=== PATIENT | female | born 1955 | race Caucasian/White ===

== ENCOUNTER 2020-03-02 10:26 | Outpatient (REF) | payer OTHER, SELFPAY ==
--- NOTE | 2020-03-02 10:30 | MM_ITS ---
EXAMINATION: MM SCREENING DIGITAL BREAST TOMOSYNTHESIS, BILATERAL CLINICAL INFORMATION: Screening. Asymptomatic. The lifetime risk of breast cancer based on the Tyrer-Cuzick Model is 9%. COMPARISON: Mammography: 02/25/2019, 01/31/2018, 11/14/2016 TECHNIQUE: Digital breast tomosynthesis is performed in both the craniocaudal and mediolateral oblique views along with computer-aided detection (CAD). Synthesized 2D images are generated from the tomosynthesis. Additional left MLO view is provided. FINDINGS: There are scattered areas of fibroglandular density (ACR BI-RADS breast composition Category b). There are no significant masses, abnormal calcifications, or other abnormalities. Parenchymal pattern is similar to prior exams. No significant changes. MM/MM tomosynthesis screening BI IMPRESSION: No mammographic evidence of malignancy. ASSESSMENT: BI-RADS 1: Negative RECOMMENDATION: Routine annual mammography screening. This patient's information was entered into a reminder system with a target due date for their next mammogram.
== END 2020-03-02 10:27 | disposition home or self-care (01) ==
LOC: HO.MAMMO 10:26
PROVIDERS: PCP Internal Medicine; Visit Provider Internal Medicine
DX: Z12.31 Encounter for screening mammogram for malignant neoplasm of breast (principal)
CPT/HCPCS: 77063; 77067

== ENCOUNTER 2021-12-05 07:21 | Outpatient (REF) | payer OTHER, SELFPAY ==
--- NOTE | ~2021-12-05 | MM_ITS ---
EXAMINATION: MM SCREENING DIGITAL BREAST TOMOSYNTHESIS, BILATERAL CLINICAL INFORMATION: Screening. Asymptomatic. The lifetime risk of breast cancer based on the Tyrer-Cuzick Model is 7.8%. COMPARISON: Mammography: March 02, 2020 and studies dating back to August 22, 2015 TECHNIQUE: Digital breast tomosynthesis is performed in both the craniocaudal and mediolateral oblique views along with computer-aided detection (CAD). Synthesized 2D images are generated from the tomosynthesis. FINDINGS: There are scattered areas of fibroglandular density (ACR BI-RADS breast composition Category b). There are no significant masses, abnormal calcifications, or other abnormalities. MM/MM tomosynthesis screening BI IMPRESSION: No significant changes ASSESSMENT: BI-RADS 1: Negative RECOMMENDATION: Routine annual mammography screening. This patient's information was entered into a reminder system with a target due date for their next mammogram.
== END 2021-12-05 07:22 | disposition home or self-care (01) ==
LOC: HO.MAMMO 07:21
PROVIDERS: Visit Provider Internal Medicine
DX: Z12.31 Encounter for screening mammogram for malignant neoplasm of breast (principal)
CPT/HCPCS: 77063; 77067

== ENCOUNTER → 2022-12-12 08:30 | Outpatient (BNV) | payer OTHER, SELFPAY | PROVIDERS: Visit Provider Radiology Diagnostic Radiology | DX: Z12.31 Encounter for screening mammogram for malignant neoplasm of breast (principal) | CPT/HCPCS: 77063; 77067 ==

== ENCOUNTER 2022-12-12 08:31 | Outpatient (REF) | payer OTHER, SELFPAY ==
--- NOTE | ~2022-12-12 | MM_ITS ---
EXAMINATION: MM SCREENING DIGITAL BREAST TOMOSYNTHESIS, BILATERAL CLINICAL INFORMATION: Screening. Asymptomatic. COMPARISON: Mammography: This study is compared with prior exams dating back to 2018. TECHNIQUE: Digital breast tomosynthesis is performed in both the craniocaudal and mediolateral oblique views along with computer-aided detection (CAD). Synthesized 2D images are generated from the tomosynthesis. FINDINGS: There are scattered areas of fibroglandular density (ACR BI-RADS breast composition Category b). There are no significant masses, abnormal calcifications, or other abnormalities. Few, unchanged, benign calcifications are present in each breast. MM/MM tomosynthesis screening BI IMPRESSION: No mammographic evidence of malignancy. ASSESSMENT: BI-RADS BI-RADS 2 - Benign Findings RECOMMENDATION: Routine annual mammography screening. 1 year F/U This examination should not preclude the clinical evaluation of a suspicious palpable abnormality. This patient's information was entered into a reminder system with a target due date for their next mammogram.
== END 2022-12-12 08:32 | disposition home or self-care (01) ==
LOC: HO.MAMMO 08:31
PROVIDERS: Visit Provider Internal Medicine
DX: Z12.31 Encounter for screening mammogram for malignant neoplasm of breast (principal)
CPT/HCPCS: 77063; 77067

== ENCOUNTER 2023-12-18 08:42 | Outpatient (REF) | payer OTHER, SELFPAY ==
--- NOTE | ~2023-12-18 | MM_ITS ---
EXAMINATION: MM SCREENING DIGITAL BREAST TOMOSYNTHESIS, BILATERAL CLINICAL INFORMATION: Screening. Asymptomatic. COMPARISON: Mammography: Comparison is made with available priors TECHNIQUE: Digital breast mammography with tomosynthesis is performed in both the craniocaudal and mediolateral oblique views along with computer-aided detection (CAD). FINDINGS: There are scattered areas of fibroglandular density (ACR BI-RADS breast composition Category b). There are no significant masses, abnormal calcifications, or other abnormalities. MM/MM tomosynthesis screening BI IMPRESSION: No mammographic evidence of malignancy. ASSESSMENT: BI-RADS BI-RADS 1 - Negative RECOMMENDATION: Routine annual mammography screening. 1 year F/U This examination should not preclude the clinical evaluation of a suspicious palpable abnormality. This patient's information was entered into a reminder system with a target due date for their next mammogram. Electronically signed by: Lelia Santoyo DO 12/28/2023 09:23 AM [facility]
== END 2023-12-18 08:43 | disposition home or self-care (01) ==
LOC: HO.MAMMO 08:42
PROVIDERS: PCP Internal Medicine; Visit Provider Internal Medicine
DX: Z12.31 Encounter for screening mammogram for malignant neoplasm of breast (principal)
CPT/HCPCS: 77063; 77067

== ENCOUNTER → 2023-12-18 08:45 | Outpatient (BNV) | payer OTHER, SELFPAY | PROVIDERS: PCP Internal Medicine; Visit Provider Internal Medicine | DX: Z12.31 Encounter for screening mammogram for malignant neoplasm of breast (principal) | CPT/HCPCS: 77063; 77067 ==

== ENCOUNTER 2024-12-23 08:52 | Outpatient (REF) | payer MEDICARE, SELFPAY ==
--- OUTSIDE RECORDS SUMMARY | 2024-12-23 08:55 | XMS_ITS | Clinical Summary ---
Author Organization [facility] Address [address] [place] [address] Phone Care Team Providers Care Edge Trimming Machine Operator Name Role Phone Sara Ledezma MD Primary Care Provider [phone] Allergies No known active allergies Medications No known medications Active Problems No known active problems Social History Tobacco Use Types Packs/Day Years Used Date Smoking Tobacco: Never Assessed Education Answer Date Recorded Are you interested in more education? Not on marquita e 06/12/2022 Are you concerned about learning? Not on file 06/12/2022 No 06/12/2022 No 06/12/2022 Digital Access Answer Date Recorded No 07/13/2022 No 07/13/2022 Reliable internet access at home? Not on file 07/13/2022 Device with a working camera? Not on file Comments Unknown Sex and Gender Information Value Date Recorded Sex Assigned at Not on file Legal Sex Female 9:52 PM EDT Gender Identity Not on file Sexual Orientation Not on file Last Filed Vital Signs Vital Sign Reading Time Taken Comments Blood Pressure 129/79 09/10/2020 8:37 PM EDT Pulse 70 09/10/2020 8:37 PM EDT Temperature 36.4 C (97.5 F) 09/10/2020 8:37 PM EDT Respiratory Rate 18 09/10/2020 8:37 PM EDT Oxygen Saturation 99% 09/10/2020 8:37 PM EDT Inhaled Oxygen Concentration - - Weight 81.2 kg (179 lb) 10/23/2013 4:07 AM EDT Height 160 cm (5' 3 ) 10/23/2013 4:07 AM EDT Body Mass Index 31.71 10/23/2013 4:07 AM EDT Plan of Treatment Health Maintenance Due Date Last Done Comments Adult Td,Tdap Booster 1957 DEPRESSION SCREENING 1969 SMOKING Hx and SMOKELESS TOBACCO SCREENING 1970 HEPATITIS C SCREENING 1975 MAMMOGRAM 1997 COLOGUARD 2002 COLONOSCOPY 2002 COLORECTAL CANCER SCREENING 2002 FIT TEST 2002 FOBT 2002 SIGMOIDOSCOPY 2002 VIRTUAL COLONOSCOPY 2002 PNEUMOCOCCAL VACCINES (50+ years) (1 of 1 - PCV) 2007 ZOSTER VACCINES (1 of 2) 2007 OSTEOPOROSIS SCREENING INITIAL (ONE-TIME) 2022 INFLUENZA VACCINE (#1) 2024 COVID-19 VACCINE (2 - season) 2024 05/27/2020 LIPID PANEL 12/18/2029 12/18/2024, 12/17, 2022, Additional history exists RSV VACCINE (1 - 1-dose 75+ series) 02/25/2032 HEPATITIS A VACCINES Aged Out No long er eligible based on patient's age to complete this topic HIB VACCINES Aged Out No longer eligi ble based on patient's age to complete this topic MENINGOCOCCAL VACCINES (ACWY) Aged Out No longer eligible based on patient's age to complete this topic MENINGOCOCCAL VACCINES (B) Aged Out N o longer eligible based on patient's age to complete this topic Medical Devices Not on file Procedures Procedure Name Priority Date/Time Associated Diagnosis Comments STOOL CULTURE Routine 12/21/2024 8:00 AM EST Hypothyroidism, unspecified type PE (physical exam), annual Change in bowel habit TISSUE TRANSGLUTAMINASE IGA Routine 12/18/2024 10:11 AM EST Hypothyroidism, unspecified type PE (physical exam), annual Change in bowel habit 25-OH VITAMIN D Routine 12/18/2024 10:11 AM EST Hypothyroidism, unspecified type PE (physical exam), annual Change in bowel habit CBC Routine 12/18/2024 10:11 AM EST Hypothyroidism, unspecified type PE (physical exam), annual Change in bowel habit LIPID PANEL Routine 12/18/2024 10:11 AM EST Hypothyroidism, unspecified type PE (physical exam), annual Change in bowel habit COMPREHENSIVE METABOLIC PANEL (CMP) Routine 12/18/2024 10:11 AM EST Hypothyroidism, unspecified type PE (physical exam), annual Change in bowel habit from Last 3 Months Results * Comprehensive Metabolic Panel (CMP) (12/18/2024 10:11 AM EST) Pathologist [facility] Sodium 140 136 - 145 mmol/L 12/18/2024 11:38 AM [facility] Potassium 4.7 3.4 - 5.1 mmol/L 12/18/2024 11:38 AM [facility] Chloride 105 98 - 107 mmol/L 12/18/2024 11:38 AM [facility] CO2 28 20 - 31 mmol/L 12/18/2024 11:38 AM [facility] Anion Gap 7 3 - 17 mmol/L 12/18/2024 11:38 AM [facility] BUN 15 6 - 23 mg/dL 12/18/2024 11:38 AM [facility] Creatinine 0.70 0.50 - 1.00 mg/dL 12/18/2024 11:38 AM [facility] eGFR 95 >59 mL/min/1.7 3m2 12/18/2024 11:38 AM [facility] Comment:Estimated glomerular filtration rate calculated using the CKD-EPI refit equation. Glucose 95 70 - 99 mg/dL 12/18/2024 11:38 AM [facility] Calcium 10.1 8.5 - 10.5 mg/dL 12/18/2024 11:38 AM [facility] AST 21 <33 U/L 12/18/2024 11:38 AM [facility] ALT 24 <34 U/L 12/18/2024 11:38 AM [facility] Alkaline Phosphatase 93 40 - 130 U/L 12/18/2024 11:38 AM [facility] Bilirubin, Total 0.5 0.0 - 1.2 mg/dL 12/18/2024 11:38 AM [facility] Total Protein 7.4 6.4 - 8.3 g/dL 12/18/2024 11:38 AM [facility] Albumin 4.4 3.5 - 5.2 g/dL 12/18/2024 11:38 AM [facility] Globulin 3.0 1.9 - 4.1 g/dL 12/18/2024 11:38 AM [facility] Blood (Blood) Venipuncture / Unknown 12/18/2024 10:11 AM EST 12/18/2024 10:25 AM EST us Sara Ledezma MD LAB BLOOD BKR ORDERABLES Fi nal Result [address] [address] * Tissue Transglutaminase Antibody, IgA (12/18/2024 10:11 AM EST) Tissue Transglutaminase Ab, IgA, S <1.2 <4.0 (Negative ) U/mL 12/19/2024 4:38 PM EST [facility] Blood (Blood) Venipuncture / Unknown 12/18/2024 10:11 AM EST 12/18/2024 10:25 AM EST us Sara Ledezma MD LAB BLOOD BKR ORDERABLES Fi nal Result JIANG SAMANTHA) [facility] [address] [phone] * 25-OH Vitamin D (12/18/2024 10:11 AM EST) 25-OH Vitamin D, Total 40 20 - 50 ng/mL 12/18/2024 11:55 AM [facility] Comment: Severe deficiency: <10 ng/mL Mild to moderate deficiency: 10-19 ng/mL Optimum levels: 20-50 ng/mL Increased risk of hypercalciuria: 51-80 ng/mL Possible toxicity: >80 ng/mL Blood (Blood) Venipuncture / Unknown 12/18/2024 10:11 AM EST 12/18/2024 10:25 AM EST us Sara Ledezma MD LAB BLOOD BKR ORDERABLES Fi nal Result [facility] [address] [place] [address] * (ABNORMAL) CBC (12/18/2024 10:11 AM EST) WBC 7.26 4.00 - 11.00 K/uL 12/18/2024 10:48 AM [facility] RBC 4.65 4.00 - 5.20 M/uL 12/18/2024 10:48 AM [facility] Hemoglobin 14.6 12.0 - 16.0 g/dL 12/18/2024 10:48 AM [facility] Hematocrit 45.3 36.0 - 46.0 % 12/18/2024 10:48 AM [facility] MCV 97.4 80.0 - 100.0 fL 12/18/2024 10:48 AM [facility] MCH 31.4(H) 27.0 - 31.0 pg 12/18/2024 10:48 AM [facility] MCHC 32.2 32.0 - 36.0 g/dL 12/18/2024 10:48 AM [facility] PLT 264 150 - 450 K/uL 12/18/2024 10:48 AM [facility] MPV 10.0 8.4 - 12.0 fL 12/18/2024 10:48 AM [facility] RDW-CV 13.2 11.5 - 14.5 % 12/18/2024 10:48 AM [facility] Absolute NRBC 0.00 <=0.00 K cells/uL 12/18/2024 10:48 AM [facility] NRBC 0.0 <=0.0 /100 WBCs 12/18/2024 10:48 AM [facility] Blood (Blood) Venipuncture / Unknown 12/18/2024 10:11 AM EST 12/18/2024 10:25 AM EST Sara Ledezma MD LAB BLOOD BKR ORDERABLES Fi nal Result Performing Organization Address [facility]/ZIP Co de Phone Number [address] [address] * (ABNORMAL) Lipid Panel (12/18/2024 10:11 AM EST) Cholesterol 209(H) <200 mg/dL 12/18/2024 11:38 AM [facility] HDL 43 >=40 mg/dL 12/18/2024 11:38 AM [facility] Calculated LDL 132(H) <130 mg/dL 12/18/2024 11:38 AM [facility] Comment:LDL is calculated us ing the Leach-NIH equation (KAYLA Cardiol. 2019June 15;5(5):540-548). Non-HDL Cholesterol 166 mg/dL 12/18/2024 11:38 AM [facility] Comment:Guidelines suggest a non-HDL cholesterol goal 30 mg/dL higher than the patient-specific LDL cholesterol goal. Cardiac Risk Ratio 4.9 0.0 - 5.0 2024 11:38 AM [facility] Triglycerides 188(H) <=150 mg/dL 12/18/2024 11:38 AM [facility] Blood (Blood) Venipuncture / Unknown 12/18/2024 10:11 AM EST 12/18/2024 10:25 AM EST Sara Ledezma MD LAB BLOOD BKR ORDERABLES Fi nal Result [address] [phone] from Last 3 Months Insurance [employer] PPO REPLACEMENT [employer] REPLAC[employer] PPO REPLACEMENT [employer] REPLAC[employer] P[employer] REPLACEMENT [employer] P[employer] REPLACEMENT Care Teams Edge Trimming Machine Operator Relationship Specialty Start Date End Date Sara Ledezma MD [address] [place] [address] [email or web address] PCP - General Internal Medicine 04/08/19 Additional Source Comments The information contained in this document represents components of the legal health record. It is not the complete legal health record.[facility]
--- OUTSIDE RECORDS SUMMARY | 2024-12-23 08:55 | XMS_ITS | Encounter Summary ---
Author Organization [facility] Address [address] [place] [address] Phone Care Team Providers Care Printed Circuit Board Pcb Draftsman Name Role Phone Sara Ledezma MD Primary Care Provider [phone]- [phone] Encounter Details Date Type Department Care Team (Late st Contact Info) Description 10/22/2020 Transcribe Orders Virtual Department [address] [place] [address] Sara Ledezma MD [address] [place] [address] [email or web address] Neck pain (Primary Dx) Social History Tobacco Use Types Packs/Day Years Used Date Smoking Tobacco: Never Assessed Comments Unknown Sex and Gender Information Value Date Recorded Sex Assigned at Not on file Legal Sex Female 9:52 PM EDT Gender Identity Not on file Sexual Orientation Not on file documented as of this encounter Plan of Treatment Not on file documented as of this encounter Visit Diagnoses Diagnosis Neck pain- Primary Cervicalgia documented in this encounter Care Teams Printed Circuit Board Pcb Draftsman Relationship Specialty Start Date End Date Sara Ledezma MD [address] [place] [address] [email or web address] PCP - General Internal Medicine 04/08/19 documented as of this encounter Additional Source Comments The information contained in this document represents components of the legal health record. It is not the complete legal health record.[facility]
--- OUTSIDE RECORDS SUMMARY | 2024-12-23 08:56 | XMS_ITS | Encounter Summary ---
Author Organization [facility] Address [address] [place] [address] [place] [address] Phone Care Team Providers Care Cash Room Clerk Name Role Phone Sara Ledezma MD Primary Care Provider [phone]- [phone] Encounter Details Date Type Department Care Team (Late st Contact Info) Description 04/09/2020 Transcribe Orders Virtual Department [address] [place] [address] Sara Ledezma MD [address] [place] [email or web address] Neck pain (Primary Dx) Social History Tobacco [...] on file documented as of this encounter Results * XR CERVICAL SPINE 4-5 VIEWS (10/19/2020 10:43 AM EDT) Anatomical Region Laterality Modality C-spine Computed Radiogr aphy 10/19/2020 11:3 4 AM EDT Impressions 10/19/2020 11:37 AM EDT No displaced fracture identified. Degenerative changes as described. Narrative 10/19/2020 11:37 AM EDT XR CERVICAL SPINE 4-5 VIEWS COMPARISON: None. FINDINGS: No displaced fracture identified. C4-C5 2 mm anterolisthesis appears degenerative. Disc height loss worst at C5-C6, moderate to severe, with disc osteophytes also most pronounced at this level. Facet arthropathy appears most severe at C7-T1, where there also appears to be some anterolisthesis, T1 vertebral body not well seen due to overlapping shoulders. Atlantodens interval within normal limits. Prevertebral soft tissues normal thickness. Procedure Note Noam Pereyra MD, MPH - 10/19/2020 XR CERVICAL SPINE 4-5 VIEWS COMPARISON: None. FINDINGS: No displaced fracture identified. C4-C5 2 mm anterolisthesis appearsdegenerative. Disc height loss worst at C5-C6, moderate to severe, withdisc osteophytes also most pronounced at this level. Facet arthropathyappears most severe at C7-T1, where there also appears to be someanterolisthesis, T1 vertebral body not well seen due to overlappingshoulders. Atlantodens interval within normal limits. Prevertebral softtissues normal thickness. IMPRESSION: No displaced fracture identified. Degenerative changes as described. Sara Ledezma MD IMG XR SPINE Final Resul t documented in this encounter Visit Diagnoses Diagnosis Neck pain- Primary Cervicalgia Neck pain Cervicalgia documented in this encounter Care Teams Cash Room Clerk Relationship Specialty Start Date End Date Sara Ledezma MD [address] [place] [address] [email or web address] PCP - General Internal Medicine 04/08/19 documented as of this encounter Additional Source Comments The information contained in this document represents components of the legal health record. It is not the complete legal health record.[facility]
== END 2024-12-23 08:53 | disposition home or self-care (01) ==
LOC: HO.MAMMO 08:52
PROVIDERS: PCP Internal Medicine; Visit Provider Internal Medicine
DX: Z12.31 Encounter for screening mammogram for malignant neoplasm of breast (principal)
CPT/HCPCS: 77063; 77067

== ENCOUNTER → 2024-12-23 09:15 | Outpatient (BNV) | payer MEDICARE, SELFPAY | PROVIDERS: PCP Internal Medicine; Visit Provider Internal Medicine | DX: Z12.31 Encounter for screening mammogram for malignant neoplasm of breast (principal) | CPT/HCPCS: 77063; 77067 ==